=== PATIENT | female | born 1985 | race Caucasian/White ===

== ENCOUNTER 2016-10-28 12:20 | Emergency (ER) | payer OTHER ==
[~2016-10-28] VITALS: Ht 162.6 cm; Wt 56.8 kg
[2016-10-28 12:22] VITALS: BP 128/87
[2016-10-28] MEDS ORDERED: [UNRECOGNIZED DRUG - OTHER] PO (12:28)
[2016-10-28] MEDS ORDERED: ULTR50TA8 PO (13:24)
[2016-10-28] MEDS ORDERED: IBUP-1022 PO (13:24)
[2016-10-28] MEDS ORDERED: CLEO300C2 PO (13:24)
== END 2016-10-28 13:33 | disposition home or self-care (01) ==
LOC: M ED 12:20
DX: K04.7 Periapical abscess without sinus (principal); K02.9 Dental caries, unspecified; K08.89 Other specified disorders of teeth and supporting structures; Z79.899 Other long term (current) drug therapy; Z88.0 Allergy status to penicillin

== ENCOUNTER 2017-10-30 15:28 | Emergency (ER) | payer OTHER | END 2017-10-30 17:27 | disposition home or self-care (01) | LOC: M ED 15:28 | DX: J01.90 Acute sinusitis, unspecified (principal); D64.9 Anemia, unspecified; F17.210 Nicotine dependence, cigarettes, uncomplicated; Z88.0 Allergy status to penicillin | CPT/HCPCS: 99283 ==

== ENCOUNTER → 2017-11-10 | Outpatient (CLI) | payer OTHER ==
[2017-11-10 19:06] LABS: BASO # 0.1 10^3/uL (0.0-0.2); EOS # 0.1 10^3/uL (0.0-0.50); EOS % 2.1 % (0.0-3.0); HEMATOCRIT 32.6 % (36.0-47.0); HEMOGLOBIN 10.2 g/dl (12.0-15.5); IMMATURE GRANULOCYTE % 0.2 % (0-3.0); LYMPH # 1.8 10^3/uL (1.5-4.5); LYMPH % 28.5 % (24.0-44.0); MEAN CORPUSCULAR HEMOGLOBIN 25.6 pg (27.0-33.0); MEAN CORPUSCULAR HGB CONC 31.3 g/dl (32.0-36.5); MEAN CORPUSCULAR VOLUME 81.9 fl (80.0-96.0); MONO # 0.5 10^3/uL (0.0-0.8); MONO % 8.7 % (0.0-5.0); NEUTROPHILS # 3.7 10^3/uL (1.8-7.7); NEUTROPHILS % 59.5 % (36.0-66.0); PLATELET COUNT, AUTOMATED 370 10^3/uL (150-450); RED BLOOD COUNT 3.98 10^6/uL (4.00-5.40); WHITE BLOOD COUNT 6.2 10^3/uL (4.0-10.0)
[2017-11-10 19:26] LABS: CONTROL LINE HCG INT CTR LINE PRESENT; HCG, SERUM QUALITATIVE NEGATIVE (NEGATIVE)
[2017-11-10 19:40] LABS: TOTAL 25(OH) VITAMIN D 31.8 NG/ML (30.0-100.0); VITAMIN B12 LEVEL 359 PG/ML (247-911)
[2017-11-10 19:41] LABS: ALBUMIN 3.9 GM/DL (3.2-5.2); ALBUMIN/GLOBULIN RATIO 1.18 (1.00-1.93); ALKALINE PHOSPHATASE 63 U/L (45-117); ALT/SGPT 16 U/L (12-78); ANION GAP 7 MEQ/L (8-16); AST/SGOT 13 U/L (7-37); BILIRUBIN,TOTAL 0.3 MG/DL (0.2-1.0); BLOOD UREA NITROGEN 11 MG/DL (7-18); CALCIUM LEVEL 9.3 MG/DL (8.5-10.1); CARBON DIOXIDE LEVEL 26 MEQ/L (21-32); CHLORIDE LEVEL 110 MEQ/L (98-107); CREATININE FOR GFR 0.88 MG/DL (0.55-1.30); GLOMERULAR FILTRATION RATE > 60.0 (>60); GLUCOSE, FASTING 86 MG/DL (70-100); POTASSIUM SERUM 4.8 MEQ/L (3.5-5.1); SODIUM LEVEL 143 MEQ/L (136-145); TOTAL PROTEIN 7.2 GM/DL (6.4-8.2)
== END ==
LOC: M LAB 17:54
DX: F32.9 Major depressive disorder, single episode, unspecified (principal)
CPT/HCPCS: 84443

== ENCOUNTER 2018-03-29 04:32 | Emergency (ER) | payer OTHER ==
[2018-03-29] MEDS: MORPHINE 10 MG/ML 1ML VIAL (J2270) IM (05:45)
[2018-03-29] MEDS: NORCO 5/325MG TABLET (BULK FOR ED) PO (06:00)
== END 2018-03-29 06:54 | disposition home or self-care (01) ==
LOC: M ED 04:32
DX: S92.321A Displaced fracture of second metatarsal bone, right foot, initial encounter for closed fracture (principal); W22.8XXA Striking against or struck by other objects, initial encounter; Y92.410 Unspecified street and highway as the place of occurrence of the external cause; Z79.899 Other long term (current) drug therapy; Z88.0 Allergy status to penicillin; F17.210 Nicotine dependence, cigarettes, uncomplicated
CPT/HCPCS: J2270

== ENCOUNTER → 2018-04-28 | Outpatient (CLI) | payer OTHER ==
[~2018-04-28] MED LIST: ALKATAB21 PO; CLEO300C2 PO; IBUP-1022 PO; IBUP-1114 PO; LEXA1TAB PO; LIDO1SOL7 PO; ULTR50TA8 PO; ZITHTAB PO; [UNRECOGNIZED DRUG - OTHER] PO
--- NOTE | 2018-04-29 08:52 | REP ---
CT right foot without contrast: History: Contusion of the right foot. Comparison radiographs are from March 29, 2018. Technique: Helical scanning is acquired. 2 mm axial images are reformatted. Coronal and sagittal multiplanar re-formation images are generated. 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 The size of the medial talar dome OCD lesion is 7 mm in medial to lateral span by 4 mm proximal to distal by 10 mm anterior to posterior. The lesion is not displaced but there is slight malalignment on sagittal re-formation images suggesting the possibility of a unstable OCD fragment. The tibial plafond is unremarkable. Talar dome is otherwise unremarkable. Subtalar articulation is normal. There is no evidence of tarsal coalition. There is minimal hypertrophy and subcortical cyst formation in the dorsal aspect of the tarsal navicular bone. CT study does demonstrate nondisplaced fractures involving the volar aspect of the proximal first metatarsal at the first MTT joint as well as chip fractures of the proximal end of the second and third metatarsals at the second and third MTT articulations. The fourth and fifth MTT articulations appear intact. There is no malalignment. The distribution of the fracture suggesting a less altagracia joint injury. No other acute fractures seen. Impression: Nondisplaced fractures of the proximal first, second and third metatarsals at the MTP articulations, Lisfranc's joint injury without dislocation or subluxation. Incidental finding of a fairly large osteochondral defect lesion in the medial talar dome with features suggesting the possibility of a unstable fragment. Electronically Signed by Constantin Redd MD 04/29/2018 08:43 A
== END ==
LOC: M RAD 15:06
PROVIDERS: ATTEND Orthopaedic Surgery Sports Medicine
DX: S92.314A Nondisplaced fracture of first metatarsal bone, right foot, initial encounter for closed fracture (principal); S92.324A Nondisplaced fracture of second metatarsal bone, right foot, initial encounter for closed fracture; S92.334A Nondisplaced fracture of third metatarsal bone, right foot, initial encounter for closed fracture; S96.811A Strain of other specified muscles and tendons at ankle and foot level, right foot, initial encounter; M95.8 Other specified acquired deformities of musculoskeletal system; X58.XXXA Exposure to other specified factors, initial encounter; Y92.89 Other specified places as the place of occurrence of the external cause

== ENCOUNTER 2018-05-03 10:17 | Emergency (ER) | payer OTHER ==
[~2018-05-03] VITALS: Ht 165.1 cm; Wt 59.1 kg
[~2018-05-03 10:17] MED LIST changes: -ALKATAB21 PO; -LIDO1SOL7 PO
[2018-05-03 10:18] VITALS: BP 137/84
[2018-05-03] MEDS ORDERED: ALKATAB21 PO (10:22)
[2018-05-03] MEDS ORDERED: LIDOCAINE VISCOUS 2% SOLN 15ML UDC SS ONE (10:45)
[2018-05-03] MEDS ORDERED: IBUPROFEN 600 MG TAB PO ONE (10:45)
[2018-05-03] MEDS ORDERED: LIDO1SOL7 PO (11:01)
[2018-05-03] MEDS ORDERED: IBUP-1022 PO (11:01)
== END 2018-05-03 11:14 | disposition home or self-care (01) ==
LOC: M ED 10:17
DX: J02.9 Acute pharyngitis, unspecified (principal); D64.9 Anemia, unspecified; F41.9 Anxiety disorder, unspecified; Z79.899 Other long term (current) drug therapy; Z88.0 Allergy status to penicillin; F17.210 Nicotine dependence, cigarettes, uncomplicated

== ENCOUNTER 2018-05-12 16:28 | Emergency (ER) | payer OTHER ==
[~2018-05-12] VITALS: Ht 165.1 cm; Wt 59.1 kg
[~2018-05-12 16:28] MED LIST changes: +ALKATAB21 PO; +LIDO1SOL7 PO
[2018-05-12 19:11] LABS: INFLUENZA A AMPLIFICATION NEGATIVE (NEGATIVE); INFLUENZA B AMPLIFICATION NEGATIVE (NEGATIVE)
[2018-05-12] MEDS ORDERED: FLON1SPR NARES (19:21)
[2018-05-12] MEDS ORDERED: LIDO1SOL7 PO (19:21)
[2018-05-12] MEDS ORDERED: TESS100C PO (19:21)
[2018-05-12 19:30] VITALS: BP 142/98
== END 2018-05-12 19:31 | disposition home or self-care (01) ==
LOC: M ED 16:28
DX: J02.9 Acute pharyngitis, unspecified (principal); D50.9 Iron deficiency anemia, unspecified; Z88.0 Allergy status to penicillin; Z79.899 Other long term (current) drug therapy

== ENCOUNTER → 2018-05-15 | Outpatient (REF) | payer OTHER ==
[~2018-05-15] MED LIST changes: +FLON1SPR NARES; +TESS100C PO
== END ==
LOC: M LAB REF 14:41
PROVIDERS: ATTEND Physician Assistant
DX: R19.7 Diarrhea, unspecified (principal)

== ENCOUNTER 2018-11-25 22:40 | Emergency (ER) | payer OTHER ==
[~2018-11-25] VITALS: Ht 162.6 cm; Wt 68.2 kg
[~2018-11-25 22:40] MED LIST changes: -LIDO1SOL7 PO; +LIDO1SOL8 PO
[2018-11-26] MEDS ORDERED: KETO10TAB PO (01:37)
[2018-11-26] MEDS ORDERED: LIDO1SOL8 PO (01:37)
[2018-11-26] MEDS ORDERED: CLEO300C2 PO (01:37)
[2018-11-26] MEDS ORDERED: CLINDAMYCIN 150 MG CAP PO ONE (01:45)
[2018-11-26] MEDS ORDERED: KETOROLAC TROMETHAMINE 10 MG TAB PO ONE (01:45)
[2018-11-26 01:50] VITALS: BP 150/108
== END 2018-11-26 02:00 | disposition home or self-care (01) ==
LOC: M ED 22:40
DX: K04.7 Periapical abscess without sinus (principal); D64.9 Anemia, unspecified; F17.210 Nicotine dependence, cigarettes, uncomplicated; Z88.0 Allergy status to penicillin

== ENCOUNTER → 2019-06-16 | Outpatient (REF) | payer OTHER ==
[~2019-06-16] MED LIST changes: +KETO10TAB PO; -LIDO1SOL8 PO; +LIDO2SOL17 PO
[2019-06-16 18:39] LABS: BASO # 0.1 10^3/uL (0.0-0.2); BASO % 0.8 % (0.0-1.0); EOS # 0.1 10^3/uL (0.0-0.5); EOS % 1.1 % (0.0-3.0); HEMATOCRIT 40.1 % (36.0-47.0); HEMOGLOBIN 12.6 g/dl (12.0-15.5); LYMPH # 1.7 10^3/uL (1.5-5.0); LYMPH % 23.9 % (24.0-44.0); MEAN CORPUSCULAR HEMOGLOBIN 28.6 pg (27.0-33.0); MEAN CORPUSCULAR HGB CONC 31.4 g/dl (32.0-36.5); MEAN CORPUSCULAR VOLUME 90.9 fl (80.0-96.0); MONO # 0.6 10^3/uL (0.0-0.8); NEUTROPHILS # 4.6 10^3/uL (1.5-8.5); NEUTROPHILS % 64.8 % (36.0-66.0); PLATELET COUNT, AUTOMATED 300 10^3/uL (150-450); RED BLOOD COUNT 4.41 10^6/uL (4.00-5.40); WHITE BLOOD COUNT 7.1 10^3/uL (4.0-10.0)
[2019-06-16 20:00] LABS: ALBUMIN 4.2 GM/DL (3.2-5.2); ALT/SGPT 16 U/L (12-78); BILIRUBIN,TOTAL 0.3 MG/DL (0.2-1.0); BLOOD UREA NITROGEN 11 MG/DL (7-18); CARBON DIOXIDE LEVEL 26 MEQ/L (21-32); CHLORIDE LEVEL 105 MEQ/L (98-107); CHOLESTEROL LEVEL 241 MG/DL (<200); CHOLESTEROL RISK RATIO 3.825 (<5); CREATININE FOR GFR 0.79 MG/DL (0.55-1.30); FREE T4 0.83 NG/DL (0.76-1.46); GLOMERULAR FILTRATION RATE > 60.0 (>60); GLUCOSE, FASTING 73 MG/DL (70-100); HDL CHOLESTEROL 63 MG/DL (>40); LDL CHOLESTEROL 146 MG/DL (<100); NON-HDL-C 178 MG/DL; SODIUM LEVEL 135 MEQ/L (136-145); TOTAL 25(OH) VITAMIN D 22.6 NG/ML (30.0-100.0); TOTAL PROTEIN 7.7 GM/DL (6.4-8.2); TRIGLYCERIDES LEVEL 162 MG/DL (<150)
== END ==
LOC: M LAB REF 17:56
PROVIDERS: ATTEND Physician Assistant
DX: Z13.9 Encounter for screening, unspecified (principal); F41.8 Other specified anxiety disorders; Z00.01 Encounter for general adult medical examination with abnormal findings; F17.200 Nicotine dependence, unspecified, uncomplicated; H92.03 Otalgia, bilateral; J30.9 Allergic rhinitis, unspecified; R03.0 Elevated blood-pressure reading, without diagnosis of hypertension

== ENCOUNTER 2019-11-17 07:37 | Inpatient (IN) | payer OTHER ==
[2019-11-17] MEDS ORDERED: LORazepam 2 MG TAB As Ordered ONE (12:11)
[2019-11-18] MEDS ORDERED: hydrOXYzine 50 MG TAB ONE (15:24)
[2019-11-18] MEDS ORDERED: OLANZapine 10 MG TAB As Ordered ONE (15:24)
[2019-11-18] MEDS ORDERED: OLANZapine 10 MG TAB ONE (15:24)
[2019-11-18] MEDS ORDERED: hydrOXYzine 50 MG TAB As Ordered ONE (15:24)
[2019-11-19] MEDS ORDERED: hydrOXYzine 50 MG TAB As Ordered ONE (16:03)
[2019-11-19] MEDS ORDERED: OLANZapine ORAL DISINTEGRATING TAB 5MG As Ordered ONE (16:04)
[2019-11-19] MEDS ORDERED: ACETAMINOPHEN TAB 650MG DOSE (2X325MG) As Ordered ONE (16:04)
[2019-11-20] MEDS ORDERED: hydrOXYzine 50 MG TAB As Ordered ONE (10:53)
[2019-11-20] MEDS ORDERED: OLANZapine 10 MG TAB As Ordered ONE (10:53)
[2019-11-20] MEDS ORDERED: ACETAMINOPHEN TAB 650MG DOSE (2X325MG) As Ordered ONE (10:55)
[2019-11-21] MEDS ORDERED: AZITHROMYCIN 250MG TABLET As Ordered ONE (08:37)
[2019-11-21] MEDS ORDERED: OLANZapine ORAL DISINTEGRATING TAB 5MG As Ordered ONE ×3 (08:38→22:22)
[2019-11-21] MEDS ORDERED: hydrOXYzine 50 MG TAB As Ordered ONE ×3 (08:38→22:22)
[2019-11-21] MEDS ORDERED: ACETAMINOPHEN TAB 650MG DOSE (2X325MG) As Ordered ONE ×3 (08:43→22:23)
[2019-11-22] MEDS ORDERED: OLANZapine ORAL DISINTEGRATING TAB 5MG As Ordered ONE (09:26)
[2019-11-22] MEDS ORDERED: hydrOXYzine 50 MG TAB As Ordered ONE (09:27)
[2019-11-22] MEDS ORDERED: ACETAMINOPHEN TAB 650MG DOSE (2X325MG) As Ordered ONE (09:27)
[2019-12-11] MEDS ORDERED: ALL10TAB29 PO (09:05)
== END 2019-11-22 11:10 | disposition home or self-care (01) | DRG 773 ==
LOC: M ED 07:37 → M PSY 11-18 17:20
PROVIDERS: ADMIT Psychiatry & Neurology Addiction Medicine; ATTEND Psychiatry & Neurology Addiction Medicine
DX: F15.23 Other stimulant dependence with withdrawal (principal); F11.90 Opioid use, unspecified, uncomplicated; F06.0 Psychotic disorder with hallucinations due to known physiological condition; F17.200 Nicotine dependence, unspecified, uncomplicated; N89.8 Other specified noninflammatory disorders of vagina

== ENCOUNTER → 2019-12-07 | Outpatient (CLI) | payer MEDICAID ==
[~2019-12-07] MED LIST changes: +BACT800T5 PO; +CETI-24 PO
== END ==
LOC: M OUTALCOH 09:00
PROVIDERS: ATTEND Psychiatry & Neurology Addiction Medicine
DX: Z13.39 Encounter for screening examination for other mental health and behavioral disorders (principal); F15.10 Other stimulant abuse, uncomplicated

== ENCOUNTER 2019-12-11 08:57 | Emergency (ER) | payer MEDICAID, OTHER ==
[~2019-12-11] VITALS: Ht 162.6 cm; Wt 87.5 kg
[~2019-12-11 08:57] MED LIST changes: -BACT800T5 PO; -CETI-24 PO
[2019-12-11] MEDS ORDERED: CETI-24 PO (09:05)
[2019-12-11] MEDS ORDERED: NS 1,000 ML IV ONE (09:30)
[2019-12-11 09:54] LABS: BASO # 0.1 10^3/uL (0.0-0.2); BASO % 0.5 % (0.0-1.0); EOS % 0.2 % (0.0-3.0); HEMATOCRIT 41.1 % (36.0-47.0); HEMOGLOBIN 13.1 g/dl (12.0-15.5); LYMPH # 1.1 10^3/uL (1.5-5.0); LYMPH % 9.9 % (24.0-44.0); MEAN CORPUSCULAR HGB CONC 31.9 g/dl (32.0-36.5); MEAN CORPUSCULAR VOLUME 90.9 fl (80.0-96.0); MONO # 0.9 10^3/uL (0.0-0.8); MONO % 8.1 % (0.0-5.0); NEUTROPHILS % 80.9 % (36.0-66.0); PLATELET COUNT, AUTOMATED 350 10^3/uL (150-450); RED BLOOD COUNT 4.52 10^6/uL (4.00-5.40); WHITE BLOOD COUNT 11.2 10^3/uL (4.0-10.0)
[2019-12-11 10:23] LABS: HCG, SERUM QUALITATIVE NEGATIVE (NEGATIVE)
[2019-12-11] MEDS ORDERED: ISOVUE-370 76% 100ML VIAL As Ordered ONE (10:31)
--- NOTE | 2019-12-11 11:18 | REPVR ---
PROCEDURE INFORMATION: Exam: CT Pelvis With Contrast Exam date and time: 12/11/2019 10:40 AM Age: 33 years old Clinical indication: Perianal pain; Additional info: Perirectal tenderness, concern for tracking TECHNIQUE: Imaging protocol: Computed tomography images of the pelvis with intravenous contrast. Radiation optimization: All CT scans at this facility use at least one of these dose optimization techniques: automated exposure control; mA and/or kV adjustment per patient size (includes targeted exams where dose is matched to clinical indication); or iterative reconstruction. Contrast material: ISOVUE 370; Contrast volume: 100 ml; Contrast route: INTRAVENOUS (IV); COMPARISON: No relevant prior studies available. FINDINGS: Stomach and bowel: Visualized small bowel and colon are unremarkable. Appendix: No evidence of appendicitis. Intraperitoneal space: Unremarkable. No free air. No significant fluid collection. Lymph nodes: Unremarkable. No enlarged lymph nodes. Bladder: Normal. No mass. Reproductive: There is a large left adnexal mass mostly cystic measuring 74 x 48 mm likely ovarian margin. Bones/joints: Unremarkable. No acute fracture. No dislocation. Soft tissues: Unremarkable. IMPRESSION: Large left adnexal mass. Electronically signed by: Jeremie Quiroz On 12/11/2019 11:18:43 AM
[2019-12-11 11:27] LABS: ALBUMIN 3.6 GM/DL (3.2-5.2); ALT/SGPT 38 U/L (12-78); BILIRUBIN,DIRECT < 0.1 MG/DL (0.0-0.2); BILIRUBIN,TOTAL 0.2 MG/DL (0.2-1.0); TOTAL PROTEIN 7.4 GM/DL (6.4-8.2)
[2019-12-11] MEDS ORDERED: LIDOCAINE 2% MDV 20ML VIAL SC ONE (12:00)
[2019-12-11] MEDS ORDERED: BACT800T5 PO (12:16)
[2019-12-11 12:32] VITALS: BP 120/62
== END 2019-12-11 12:34 | disposition home or self-care (01) ==
LOC: M ED 08:57
DX: L05.01 Pilonidal cyst with abscess (principal); R19.09 Other intra-abdominal and pelvic swelling, mass and lump; F17.210 Nicotine dependence, cigarettes, uncomplicated; Z88.0 Allergy status to penicillin
CPT/HCPCS: 10080; 36415; 72193; 80047; 80076; 84703; 85025; 87070; 87077; 87186; 87205; 96360; 96361; 99284; Q9967

== ENCOUNTER 2019-12-15 15:55 | Outpatient (RCR) | payer MEDICAID ==
[~2019-12-15 15:55] MED LIST changes: +BACT800T5 PO; +CETI-24 PO
== END 2019-12-20 ==
LOC: M OUTALCOH 15:55
PROVIDERS: ATTEND Psychiatry & Neurology Addiction Medicine
DX: F15.10 Other stimulant abuse, uncomplicated (principal); F10.10 Alcohol abuse, uncomplicated; F17.200 Nicotine dependence, unspecified, uncomplicated

== ENCOUNTER → 2020-01-19 | Outpatient (RCR) | payer MEDICAID, OTHER | LOC: M OUTALCOH 01-03 13:42 | PROVIDERS: ATTEND Psychiatry & Neurology Addiction Medicine | DX: F15.10 Other stimulant abuse, uncomplicated (principal); F10.10 Alcohol abuse, uncomplicated; F17.200 Nicotine dependence, unspecified, uncomplicated ==

== ENCOUNTER 2020-02-16 13:30 | Outpatient (RCR) | payer MEDICAID | END 2020-02-19 | LOC: M OUTALCOH 13:30 | PROVIDERS: ATTEND Psychiatry & Neurology Addiction Medicine | DX: F15.20 Other stimulant dependence, uncomplicated (principal); F10.20 Alcohol dependence, uncomplicated; F17.200 Nicotine dependence, unspecified, uncomplicated ==

== ENCOUNTER → 2020-03-20 | Outpatient (RCR) | payer MEDICAID | LOC: M OUTALCOH 02-21 08:19 | PROVIDERS: ATTEND Psychiatry & Neurology Addiction Medicine | DX: F15.20 Other stimulant dependence, uncomplicated (principal); F10.20 Alcohol dependence, uncomplicated; F17.200 Nicotine dependence, unspecified, uncomplicated ==

== ENCOUNTER 2020-04-18 08:00 | Outpatient (RCR) | payer MEDICAID | END 2020-04-20 | LOC: M OUTALCOH 08:00 | PROVIDERS: ATTEND Psychiatry & Neurology Addiction Medicine | DX: F15.20 Other stimulant dependence, uncomplicated (principal); F10.20 Alcohol dependence, uncomplicated; F17.200 Nicotine dependence, unspecified, uncomplicated ==

== ENCOUNTER 2020-05-18 09:00 | Outpatient (RCR) | payer MEDICAID | END 2020-05-21 | LOC: M OUTALCOH 09:00 | PROVIDERS: ATTEND Psychiatry & Neurology Addiction Medicine | DX: F15.20 Other stimulant dependence, uncomplicated (principal); F10.20 Alcohol dependence, uncomplicated; F17.200 Nicotine dependence, unspecified, uncomplicated ==

== ENCOUNTER 2020-06-15 09:00 | Outpatient (RCR) | payer MEDICAID | END 2020-06-18 | LOC: M OUTALCOH 09:00 | PROVIDERS: ATTEND Psychiatry & Neurology Addiction Medicine | DX: F15.20 Other stimulant dependence, uncomplicated (principal); F10.20 Alcohol dependence, uncomplicated; F17.200 Nicotine dependence, unspecified, uncomplicated ==

== ENCOUNTER → 2020-07-19 | Outpatient (RCR) | payer MEDICAID | LOC: M OUTALCOH 06-20 13:29 | PROVIDERS: ATTEND Psychiatry & Neurology Addiction Medicine | DX: F15.20 Other stimulant dependence, uncomplicated (principal); F10.20 Alcohol dependence, uncomplicated; F17.200 Nicotine dependence, unspecified, uncomplicated ==

== ENCOUNTER 2020-08-11 08:00 | Outpatient (RCR) | payer MEDICAID ==
[2020-08-11] MEDS ORDERED: BUPR15TA PO (14:40)
[2020-08-11] MEDS ORDERED: TRAZ-189 PO (14:40)
== END 2020-08-18 ==
LOC: M OUTALCOH 08:00
PROVIDERS: ATTEND Psychiatry & Neurology Psychiatry
DX: F15.20 Other stimulant dependence, uncomplicated (principal); F10.20 Alcohol dependence, uncomplicated; F17.200 Nicotine dependence, unspecified, uncomplicated

== ENCOUNTER 2020-08-11 14:31 | Emergency (ER) | payer MEDICAID, OTHER ==
[~2020-08-11] VITALS: Ht 154.9 cm; Wt 86.3 kg
[2020-08-11] MEDS ORDERED: BUPR15TA PO (14:40)
[2020-08-11] MEDS ORDERED: TRAZ-189 PO (14:40)
[2020-08-11 15:35] LABS: BASO # 0.1 10^3/uL (0.0-0.2); BASO % 0.8 % (0.0-1.0); EOS # 0.1 10^3/uL (0.0-0.5); EOS % 0.8 % (0.0-3.0); HEMATOCRIT 39.6 % (36.0-47.0); HEMOGLOBIN 12.7 g/dl (12.0-15.5); LYMPH # 2.6 10^3/uL (1.5-5.0); LYMPH % 29.8 % (24.0-44.0); MEAN CORPUSCULAR HEMOGLOBIN 28.1 pg (27.0-33.0); MEAN CORPUSCULAR HGB CONC 32.1 g/dl (32.0-36.5); MEAN CORPUSCULAR VOLUME 87.6 fl (80.0-96.0); MONO # 0.5 10^3/uL (0.0-0.8); MONO % 5.4 % (2.0-8.0); NEUTROPHILS # 5.4 10^3/uL (1.5-8.5); PLATELET COUNT, AUTOMATED 422 10^3/uL (150-450); RED BLOOD COUNT 4.52 10^6/uL (4.00-5.40); WHITE BLOOD COUNT 8.6 10^3/uL (4.0-10.0)
[2020-08-11 16:05] LABS: ALBUMIN 4.5 GM/DL (3.2-5.2); BILIRUBIN,DIRECT 0.1 MG/DL (0.0-0.2); BILIRUBIN,TOTAL 0.4 MG/DL (0.2-1.0); TOTAL PROTEIN 7.8 GM/DL (6.4-8.2)
--- NOTE | 2020-08-11 17:35 | REP ---
INDICATION: pelvic pain +preg COMPARISON: None. TECHNIQUE: Transabdominal and transvaginal 1st trimester obstetrical ultrasound with color Doppler evaluation. FINDINGS: Retroverted uterus measures 7.9 x 4.7 x 4.9 cm. Endometrial complex measures 11 mm thickness. No gestational sac is identified. Right ovary measures 3.1 x 1.8 x 1.9 cm (RI 0.50). Left ovary measures 6.2 x 4.4 x 5.3 cm (RI 0.56) and includes 6.1 x 4.6 x 3.5 cm complex possibly hemorrhagic cyst. No pelvic fluid or adnexal mass lesion. IMPRESSION: 1. No intrauterine identified. Correlation with serial HCG levels recommended. 2. Left ovarian complex cyst possibly hemorrhagic cyst/corpus luteum. <Electronically signed by Wu Silverman > 08/11/20 [id number]
[2020-08-11 18:27] VITALS: BP 136/93
== END 2020-08-11 18:28 | disposition home or self-care (01) ==
LOC: M ED 14:31
DX: O26.891 Other specified pregnancy related conditions, first trimester (principal); R10.2 Pelvic and perineal pain; Z79.899 Other long term (current) drug therapy; Z88.0 Allergy status to penicillin; O99.331 Smoking (tobacco) complicating pregnancy, first trimester; F17.210 Nicotine dependence, cigarettes, uncomplicated; Z3A.00 Weeks of gestation of pregnancy not specified

== ENCOUNTER → 2020-08-13 | Outpatient (CLI) | payer OTHER ==
[~2020-08-13] MED LIST changes: +BUPR15TA PO; +TRAZ-189 PO
== END ==
LOC: M LAB 12:47
PROVIDERS: ATTEND Emergency Medicine
DX: O99.891 Other specified diseases and conditions complicating pregnancy (principal); R10.2 Pelvic and perineal pain

== ENCOUNTER 2020-08-14 13:30 | Emergency (ER) | payer OTHER ==
[~2020-08-14] VITALS: Ht 162.6 cm; Wt 86.1 kg
[2020-08-14 16:20] LABS: BASO # 0.1 10^3/uL (0.0-0.2); EOS # 0.2 10^3/uL (0.0-0.5); EOS % 1.8 % (0.0-3.0); HEMATOCRIT 39.7 % (36.0-47.0); HEMOGLOBIN 12.4 g/dl (12.0-15.5); LYMPH # 2.7 10^3/uL (1.5-5.0); MEAN CORPUSCULAR HEMOGLOBIN 27.6 pg (27.0-33.0); MEAN CORPUSCULAR HGB CONC 31.2 g/dl (32.0-36.5); MEAN CORPUSCULAR VOLUME 88.4 fl (80.0-96.0); MONO # 0.5 10^3/uL (0.0-0.8); MONO % 5.7 % (2.0-8.0); NEUTROPHILS # 4.9 10^3/uL (1.5-8.5); NEUTROPHILS % 59.3 % (36.0-66.0); PLATELET COUNT, AUTOMATED 412 10^3/uL (150-450); RED BLOOD COUNT 4.49 10^6/uL (4.00-5.40); WHITE BLOOD COUNT 8.3 10^3/uL (4.0-10.0)
[2020-08-14 17:31] VITALS: BP 126/88
== END 2020-08-14 17:32 | disposition home or self-care (01) ==
LOC: M ED 13:30
DX: O03.9 Complete or unspecified spontaneous abortion without complication (principal); D64.9 Anemia, unspecified; F17.210 Nicotine dependence, cigarettes, uncomplicated; Z79.899 Other long term (current) drug therapy; Z88.0 Allergy status to penicillin

== ENCOUNTER 2020-09-15 13:25 | Outpatient (RCR) | payer MEDICAID | END 2020-09-18 | LOC: M OUTALCOH 13:25 | PROVIDERS: ATTEND Psychiatry & Neurology Psychiatry | DX: F15.20 Other stimulant dependence, uncomplicated (principal); F10.20 Alcohol dependence, uncomplicated; F17.200 Nicotine dependence, unspecified, uncomplicated ==

== ENCOUNTER 2020-09-25 14:00 | Outpatient (RCR) | payer MEDICAID | END 2020-10-18 | LOC: M OUTALCOH 14:00 | PROVIDERS: ATTEND Psychiatry & Neurology Psychiatry | DX: F15.20 Other stimulant dependence, uncomplicated (principal); F10.20 Alcohol dependence, uncomplicated; F17.200 Nicotine dependence, unspecified, uncomplicated ==